=== PATIENT | male | born 1960 | race African-American/Black ===

== ENCOUNTER 2018-07-31 18:16 | Inpatient (IN) | payer SELFPAY ==
[2018-07-31 20:07] VITALS: BMI 26.6
--- NOTE | 2018-07-31 20:24 | HP ---
CIWA Score Nausea/Vomitin (vomiting x 3) Muscle Tremors: 3 Anxiety: 4-Mod. Anxious/Guarded Agitation: 3 Paroxysmal Sweats: 3 Orientation: 0-Oriented Tacttile Disturbances: 0-None Auditory Disturbances: 0-None Visual Disturbances: 0-None Headache: 2-Mild CIWA-Ar Total Score: 18 - Admission Criteria OASAS Guidelines: Admission for Medically Managed Detox: Requires at least one of the followin. CIWA greater than 12 2. Seizures within the past 24 hours 3. Delirium tremens within the past 24 hours 4. Hallucinations within the past 24 hours 5. Acute intervention needed for co occurring medical disorder 6. Acute intervention needed for co occurring psychiatric disorder 7. Severe withdrawal that cannot be handled at a lower level of care (continued vomiting, continued diarrhea, abnormal vital signs) requiring intravenous medication and/or fluids 8. Admission ROS [facility] Chief Complaint: Alcohol withdrawal symptoms Allergies/Adverse Reactions: Allergies Allergy/AdvReac Type Severity Reaction Status Date / Time No Known Allergies Allergy Verified 07/31/18 20:16 History of Present Illness: 57 years old male with a long history of alcohol dependence is seeking admission to detox. Patient was referred from [facility] where he was treated for alcohol intoxication. He reported persistent vomiting, diarrhea and blackout. He has medical history of Asthma, COPD, migraines, seizures, GERD and hypertension. He denies suicide attempt and suicidal ideation at this time. Patient reports that this is his first admission to [facility] and first detoxification. Exam Limitations: No Limitations - Ebola screening Have you traveled outside of the country in the last 21 days: No (N) Have you had contact with anyone from an Ebola affected area: No Have you been sick,other than usual withdrawal symptoms: No Do you have a fever: No - Review of Systems Constitutional: Chills, Malaise, Night Sweats, Changes in sleep EENT: reports: Eye Pain (left), Sinus Pressure Respiratory: reports: No Symptoms reported Cardiac: reports: No Symptoms Reported GI: reports: Diarrhea, Nausea, Poor Appetite, Poor Fluid Intake, Vomiting, Abdominal cramping : reports: No Symptoms Reported Musculoskeletal: reports: Muscle Pain Integumentary: reports: Dryness, Flushing Neuro: reports: Headache, Tremors Endocrine: reports: No Symptoms Reported Hematology: reports: No Symptoms Reported Psychiatric: reports: Mood/Affect Appropiate, Orientated x3, Anxious Other Systems: Reviewed and Negative Patient History - Patient Medical History Hx Anemia: No Hx Asthma: Yes (Albuterol) Hx Chronic Obstructive Pulmonary Disease (COPD): Yes (Ventolin, Symbicort) Hx Cancer: No Hx Cardiac Disorders: No Hx Congestive Heart Failure: No Hx Hypertension: Yes (Not on medication) Hx Hypercholesterolemia: No Hx Pacemaker: No HX Cerebrovascular Accident: No Hx Seizures: Yes (Not on medication. Last seizure was 2018) Hx Dementia: No Hx Diabetes: No Hx Gastrointestinal Disorders: Yes (GERD) Hx Liver Disease: No Hx Genitourinary Disorders: No Hx Sexually Transmitted Disorders: No Hx Renal Disease (ESRD): No Hx Thyroid Disease: No Hx Human Immunodeficiency Virus (HIV): No (Negative June 19, 2018) Hx Hepatitis C: No Hx Depression: No Hx Suicide Attempt: No (Denies suicidal ideation at this time) Hx Bipolar Disorder: No Hx Schizophrenia: No - Patient Surgical History Past Surgical History: Yes Hx Orthopedic Surgery: Yes (Right Wrist repair 2010) - PPD History Previous Implant?: Yes Documented Results: Negative w/o proof Implanted On Prior [facility] Admission?: No PPD to be Administered?: Yes - Reproductive History Patient is a Female of Child Bearing Age (11 -55 yrs old): No (MALE) - Smoking Cessation Smoking history: Current every day smoker Have you smoked in the past 12 months: Yes Aproximately how many cigarettes per day: 10 Hx Chewing Tobacco Use: No Initiated information on smoking cessation: Yes 'Breaking Loose' booklet given: 07/31/18 - Substance & Tx. History Hx Alcohol Use: Yes Hx Substance Use: Yes Substance Use Type: Alcohol, Cocaine Hx Substance Use Treatment: No - Substances Abused Alcohol Route: Oral Frequency: Daily Amount used: HENNESEY - 2 PINTS; TEQUILA - 1/2 PINT Age of first use: 19 Date of Last Use: 07/29/18 Crack Route: Smoking Frequency: 3-6 times per week Amount used: $350 DAILY Age of first use: 19 Date of Last Use: 07/29/18 Family Disease History - Family Disease History Family History: Denies Admission Physical Exam [facility] - Vital Signs Vital Signs: Vital Signs - 24 hr 07/31/18 20:05 Temperature 97.9 F Pulse Rate 77 Respiratory 19 Rate Blood Pressure 141/92 - Physical General Appearance: Yes: Severe Distress, Tremorous, Irritable, Sweating, Anxious HEENTM: Yes: EOMI, Normal ENT Inspection, Normal Voice, CAROLE Respiratory: Yes: Lungs Clear, Normal Breath Sounds, No Respiratory Distress Neck: Yes: Supple Breast: Yes: Breast Exam Deferred Cardiology: Yes: Regular Rhythm, Regular Rate Abdominal: Yes: Normal Bowel Sounds, Soft Genitourinary: Yes: Within Normal Limits Back: Yes: Normal Inspection Musculoskeletal: Yes: Muscle Pain Extremities: Yes: Tremors Neurological: Yes: Alert, Normal Mood/Affect Integumentary: Yes: Warm - Diagnostic (1) Alcohol dependence with uncomplicated withdrawal Current Visit: Yes Status: Chronic (2) Asthma Current Visit: Yes Status: Chronic Qualifiers: Asthma severity: severe Asthma persistence: persistent (3) COPD (chronic obstructive pulmonary disease) Current Visit: Yes Status: Chronic Qualifiers: COPD type: COPD with acute exacerbation Qualified Code(s): J44.1 - Chronic obstructive pulmonary disease with (acute) exacerbation (4) Migraines Current Visit: Yes Status: Chronic Qualifiers: Migraine type: with aura (5) Hypertension Current Visit: Yes Status: Chronic Qualifiers: Hypertension type: essential hypertension Qualified Code(s): I10 - Essential (primary) hypertension (6) Seizures Current Visit: Yes Status: Chronic (7) GERD (gastroesophageal reflux disease) Current Visit: Yes Status: Chronic (8) Nicotine dependence Current Visit: Yes Status: Acute Qualifiers: Nicotine product type: cigarettes Substance use status: uncomplicated Qualified Code(s): F17.210 - Nicotine dependence, cigarettes, uncomplicated (9) Cannabis dependence Current Visit: Yes Status: Acute Cleared for Admission [facility] - Detox or Rehab [facility] Level of Care: Medically Managed Detox Regimen/Protocol: Librium [facility] Breath Alcohol Content Breath Alcohol Content: 0 Urine Drug Screen - Results Drug Screen Negative: No Urine Drug Screen Results: QAMAR-Cocaine, BZO-Benzodiazepines Inpatient Rehab Admission - Rehab Decision to Admit Inpatient rehab admission?: No
[2018-07-31] MEDS ORDERED: ACETAMINOPHEN 325 MG TABLET (FP) PO PRN ×2 (20:41)
[2018-07-31] MEDS ORDERED: MENTHOL/PHENOL 1 EACH UD MM PRN (20:41)
[2018-07-31] MEDS ORDERED: MAGNESIUM HYDROX 2400MG/30ML ORAL SUSPENSION 30 ML CUP PO PRN (20:41)
[2018-07-31] MEDS ORDERED: IBUPROFEN 400 MG TABLET (FP) PO PRN (20:41)
[2018-07-31] MEDS ORDERED: NICOTINE POLACRILEX 2 MG GUM BUC PRN (20:41)
[2018-07-31] MEDS ORDERED: chlordiazePOXIDE HCL 25 MG CAPSULE PO PRN (20:41)
[2018-07-31] MEDS ORDERED: hydrOXYzine PAMOATE 25 MG CAPSULE (FP) PO PRN (20:41)
[2018-07-31] MEDS ORDERED: BISMUTH SUBSALICYLATE 524 MG/30 ML UD PO PRN (20:41)
[2018-07-31] MEDS ORDERED: MAGNESIUM CITRATE 300 ML BOTTLE PO PRN (20:41)
[2018-07-31] MEDS ORDERED: chlordiazePOXIDE HCL 25 MG CAPSULE PO SCH (23:00)
[2018-08-01] MEDS ORDERED: chlordiazePOXIDE HCL 25 MG CAPSULE PO PRN (00:24)
[2018-08-01] MEDS: MELATONIN 5 MG TABLETS PO PRN ×2 (02:39→22:25)
[2018-08-01] MEDS: THIAMINE HCL 100 MG TABLET (FP) PO SCH ×2 (02:43→22:24)
[2018-08-01] MEDS: chlordiazePOXIDE HCL 25 MG CAPSULE PO SCH ×4 (06:52→22:49)
[2018-08-01] MEDS: METHOCARBAMOL 500 MG TABLET PO PRN (09:14)
[2018-08-01] MEDS: NICOTINE 14 MG/24 HOURS TOPICAL PATCH TD SCH (10:43)
[2018-08-01] MEDS: PRENATAL VITAMINS W/ FOLIC ACID TABLET (FP) PO SCH (10:43)
[2018-08-01 12:48] LABS: HEMATOCRIT 41.6 % (35.4-49); HEMOGLOBIN 13.7 GM/dL (11.7-16.9); MCH 29.8 pg (25.7-33.7); MCHC 32.9 g/dl (32.0-35.9); MEAN CELL VOLUME 90.6 fl (80-96); PLATELET COUNT 303 K/MM3 (134-434); RBC 4.59 M/mm3 (4.00-5.60); WHITE BLOOD COUNT 5.8 K/mm3 (4.0-10.0)
[2018-08-01 13:09] LABS: ALBUMIN 3.1 g/dl (3.4-5.0); ALK PHOS 77 U/L (45-117); ANION GAP 9 MMOL/L (8-16); BILIRUBIN,TOTAL 0.6 mg/dL (0.2-1); BLOOD UREA NITROGEN 15 mg/dL (7-18); CALCIUM 8.7 mg/dL (8.5-10.1); CHLORIDE 108 mmol/L (98-107); CO2 25 mmol/L (21-32); CREATININE 0.9 mg/dL (0.55-1.3); GLUCOSE,RANDOM 88 mg/dL (74-106); POTASSIUM 4.2 mmol/L (3.5-5.1); SGOT/AST 14 U/L (15-37); SGPT/ALT 15 U/L (13-61); SODIUM 142 mmol/L (136-145); TOT PROT 5.6 g/dl (6.4-8.2)
--- NOTE | 2018-08-01 14:36 | PN ---
[facility] CIWA - CIWA Score Nausea/Vomitin-Mild Nausea/No Vomiting Muscle Tremors: 1-None Visible, but Junction Anxiety: 1-Mildly Anxious Agitation: 1-Slight > Activity Paroxysmal Sweats: 1-Minimal Palms Moist Orientation: 0-Oriented Tacttile Disturbances: 0-None Auditory Disturbances: 0-None Visual Disturbances: 0-None Headache: 1-Very Mild CIWA-Ar Total Score: 6 [facility] Progress Note (SOAP) Subjective: pt states "so far so good", day #2 of detox protocols O: Vital Signs - 24 hr 07/31/18 08/01/18 08/01/18 20:05 02:38 03:30 Temperature 97.9 F 98.2 F Pulse Rate 77 76 Respiratory 19 18 18 Rate Blood Pressure 141/92 146/79 08/01/18 08/01/18 08/01/18 07:13 09:45 13:04 Temperature 97.7 F 97.9 F 98.2 F Pulse Rate 74 71 88 Respiratory 18 20 20 Rate Blood Pressure 122/70 129/75 151/85 Laboratory Tests 08/01/18 08/01/18 08:00 08:00 WBC 5.8 RBC 4.59 Hgb 13.7 Hct 41.6 MCV 90.6 MCH 29.8 MCHC 32.9 RDW 15.0 Plt Count 303 MPV 8.0 Sodium 142 Potassium 4.2 Chloride 108 H Carbon Dioxide 25 Anion Gap 9 BUN 15 Creatinine 0.9 Creat Clearance w eGFR 87.61 Random Glucose 88 Calcium 8.7 Total Bilirubin 0.6 AST 14 L ALT 15 Alkaline Phosphatase 77 Total Protein 5.6 L Albumin 3.1 L low albumin/protein a/p: continue detox protocols- pt stable
[2018-08-01] MEDS: MAG HYDROX/AL HYDROX/SIMETH 30 ML UNIT-DOSE CUP PO PRN (17:59)
[2018-08-01] MEDS ORDERED: PANTOPRAZOLE 40 MG TABLET (FP) PO ONE (21:08)
--- NOTE | 2018-08-01 21:09 | PN ---
S Progress Note Note: Patient complained of acid reflux Vital Signs Temperature 98.6 F 08/01/18 16:35 Pulse Rate 82 08/01/18 16:35 Respiratory Rate 18 08/01/18 16:35 Blood Pressure 141/85 08/01/18 16:35 O2 Sat by Pulse Oximetry (%) Action: Pantoprazole 40mg tablet oral ordered
[2018-08-01] MEDS ORDERED: chlordiazePOXIDE HCL 25 MG CAPSULE PO SCH (23:00)
[2018-08-02] MEDS: chlordiazePOXIDE HCL 25 MG CAPSULE PO SCH ×4 (05:49→22:15)
[2018-08-02] MEDS: RANITIDINE HCL 150 MG TABLET (FP) PO SCH ×2 (10:42→22:14)
[2018-08-02] MEDS: PRENATAL VITAMINS W/ FOLIC ACID TABLET (FP) PO SCH (10:42)
[2018-08-02] MEDS: NICOTINE 14 MG/24 HOURS TOPICAL PATCH TD SCH (10:42)
--- NOTE | 2018-08-02 11:01 | PN ---
S CIWA - CIWA Score Nausea/Vomitin Muscle Tremors: 2 Anxiety: 2 Agitation: 2 Paroxysmal Sweats: 1-Minimal Palms Moist Orientation: 0-Oriented Tacttile Disturbances: 1-Very Mild Itch/Numbness Auditory Disturbances: 1-Very Mild Visual Disturbances: 0-None Headache: 2-Mild CIWA-Ar Total Score: 13 [facility] Progress Note (SOAP) Subjective: alert,irritable,anxious,interrupted sleep,tremor Objective: 08/02/18 11:00 Vital Signs Temperature 97.7 F 08/02/18 09:24 Pulse Rate 80 08/02/18 09:24 Respiratory Rate 18 08/02/18 09:24 Blood Pressure 142/80 08/02/18 09:24 O2 Sat by Pulse Oximetry (%) 08/02/18 11:00 Laboratory Last Values WBC 5.8 K/mm3 (4.0-10.0) 08/01/18 08:00 RBC 4.59 M/mm3 (4.00-5.60) 08/01/18 08:00 Hgb 13.7 GM/dL (11.7-16.9) 08/01/18 08:00 Hct 41.6 % (35.4-49) 08/01/18 08:00 MCV 90.6 fl (80-96) 08/01/18 08:00 MCH 29.8 pg (25.7-33.7) 08/01/18 08:00 MCHC 32.9 g/dl (32.0-35.9) 08/01/18 08:00 RDW 15.0 % (11.9-15.9) 08/01/18 08:00 Plt Count 303 K/MM3 (134-434) 08/01/18 08:00 MPV 8.0 fl (7.5-11.1) 08/01/18 08:00 Sodium 142 mmol/L (136-145) 08/01/18 08:00 Potassium 4.2 mmol/L (3.5-5.1) 08/01/18 08:00 Chloride 108 mmol/L (98-107) H 08/01/18 08:00 Carbon Dioxide 25 mmol/L (21-32) 08/01/18 08:00 Anion Gap 9 MMOL/L (8-16) 08/01/18 08:00 BUN 15 mg/dL (7-18) 08/01/18 08:00 Creatinine 0.9 mg/dL (0.55-1.3) 08/01/18 08:00 Creat Clearance w eGFR 87.61 (>60) 08/01/18 08:00 Random Glucose 88 mg/dL (74-106) 08/01/18 08:00 Calcium 8.7 mg/dL (8.5-10.1) 08/01/18 08:00 Total Bilirubin 0.6 mg/dL (0.2-1) 08/01/18 08:00 AST 14 U/L (15-37) L 08/01/18 08:00 ALT 15 U/L (13-61) 08/01/18 08:00 Alkaline Phosphatase 77 U/L (45-117) 08/01/18 08:00 Total Protein 5.6 g/dl (6.4-8.2) L 08/01/18 08:00 Albumin 3.1 g/dl (3.4-5.0) L 08/01/18 08:00 RPR Titer Nonreactive (NONREACTIVE) 08/01/18 08:00 Assessment: 08/02/18 11:01 withdrawal symptom Plan: continue detox
--- NOTE | 2018-08-02 11:52 | EKG ---
Test Reason : Blood Pressure : / mmHG Vent. Rate : 080 BPM Atrial Rate : 080 BPM P-R Int : 140 ms QRS Dur : 084 ms QT Int : 372 ms P-R-T Axes : 072 069 034 degrees QTc Int : 429 ms NORMAL SINUS RHYTHM POSSIBLE LEFT ATRIAL ENLARGEMENT BORDERLINE ECG NO PREVIOUS ECGS AVAILABLE Confirmed by LUMA LORENZ, BOY ([id number]) on 08/02/2018 11:51:55 AM Referred By: Confirmed By:BOY GE MD
[2018-08-02] MEDS: MAG HYDROX/AL HYDROX/SIMETH 30 ML UNIT-DOSE CUP PO PRN (20:17)
[2018-08-02] MEDS: THIAMINE HCL 100 MG TABLET (FP) PO SCH (22:14)
[2018-08-02] MEDS ORDERED: chlordiazePOXIDE HCL 10 MG CAPSULE PO PRN (23:00)
[2018-08-02] MEDS ORDERED: chlordiazePOXIDE HCL 10 MG CAPSULE PO SCH (23:00)
[2018-08-03] MEDS ORDERED: chlordiazePOXIDE HCL 10 MG CAPSULE PO PRN (05:00)
[2018-08-03] MEDS: chlordiazePOXIDE HCL 10 MG CAPSULE PO SCH ×4 (05:47→22:28)
--- NOTE | 2018-08-03 10:03 | PN ---
S Progress Note (SOAP) Subjective: alert,irritable,anxious,interrupted sleep Objective: 08/03/18 10:02 Vital Signs Temperature 97.5 F L 08/03/18 06:00 Pulse Rate 73 08/03/18 06:00 Respiratory Rate 18 08/03/18 06:00 Blood Pressure 127/81 08/03/18 06:00 O2 Sat by Pulse Oximetry (%) Assessment: 08/03/18 10:02 withdrawal symptom Plan: continue detox,discharge in am
[2018-08-03] MEDS: PRENATAL VITAMINS W/ FOLIC ACID TABLET (FP) PO SCH (10:38)
[2018-08-03] MEDS: RANITIDINE HCL 150 MG TABLET (FP) PO SCH ×2 (10:38→22:28)
[2018-08-03] MEDS: NICOTINE 14 MG/24 HOURS TOPICAL PATCH TD SCH (10:39)
[2018-08-03] MEDS: FLUOCINONIDE 0.05% TOP OINT (60 GM TUBE) TP SCH ×4 (10:50→23:15)
[2018-08-03] MEDS: THIAMINE HCL 100 MG TABLET (FP) PO SCH (22:28)
[2018-08-03] MEDS: MELATONIN 5 MG TABLETS PO PRN (22:29)
[2018-08-03] MEDS ORDERED: chlordiazePOXIDE HCL 10 MG CAPSULE PO SCH (23:00)
[2018-08-04] MEDS: chlordiazePOXIDE HCL 10 MG CAPSULE PO SCH ×2 (06:30→17:52)
[2018-08-04] MEDS: RANITIDINE HCL 150 MG TABLET (FP) PO SCH ×2 (10:15→22:38)
[2018-08-04] MEDS: PRENATAL VITAMINS W/ FOLIC ACID TABLET (FP) PO SCH (10:15)
[2018-08-04] MEDS: NICOTINE 14 MG/24 HOURS TOPICAL PATCH TD SCH (10:15)
[2018-08-04] MEDS: FLUOCINONIDE 0.05% TOP OINT (60 GM TUBE) TP SCH ×4 (10:15→22:39)
--- NOTE | 2018-08-04 12:31 | PN ---
[facility] Progress Note (SOAP) Subjective: Anxiety, irritability, mild shakes and sweats Objective: 08/04/18 12:29 Vital Signs 08/04/18 08/04/18 08:25 09:39 Temperature 97.9 F 97.3 F L Pulse Rate 78 92 H Respiratory 18 18 Rate Blood Pressure 136/85 132/91 Laboratory Last Values WBC 5.8 K/mm3 (4.0-10.0) 08/01/18 08:00 RBC 4.59 M/mm3 (4.00-5.60) 08/01/18 08:00 Hgb 13.7 GM/dL (11.7-16.9) 08/01/18 08:00 Hct 41.6 % (35.4-49) 08/01/18 08:00 MCV 90.6 fl (80-96) 08/01/18 08:00 MCH 29.8 pg (25.7-33.7) 08/01/18 08:00 MCHC 32.9 g/dl (32.0-35.9) 08/01/18 08:00 RDW 15.0 % (11.9-15.9) 08/01/18 08:00 Plt Count 303 K/MM3 (134-434) 08/01/18 08:00 MPV 8.0 fl (7.5-11.1) 08/01/18 08:00 Sodium 142 mmol/L (136-145) 08/01/18 08:00 Potassium 4.2 mmol/L (3.5-5.1) 08/01/18 08:00 Chloride 108 mmol/L (98-107) H 08/01/18 08:00 Carbon Dioxide 25 mmol/L (21-32) 08/01/18 08:00 Anion Gap 9 MMOL/L (8-16) 08/01/18 08:00 BUN 15 mg/dL (7-18) 08/01/18 08:00 Creatinine 0.9 mg/dL (0.55-1.3) 08/01/18 08:00 Creat Clearance w eGFR 87.61 (>60) 08/01/18 08:00 Random Glucose 88 mg/dL (74-106) 08/01/18 08:00 Calcium 8.7 mg/dL (8.5-10.1) 08/01/18 08:00 Total Bilirubin 0.6 mg/dL (0.2-1) 08/01/18 08:00 AST 14 U/L (15-37) L 08/01/18 08:00 ALT 15 U/L (13-61) 08/01/18 08:00 Alkaline Phosphatase 77 U/L (45-117) 08/01/18 08:00 Total Protein 5.6 g/dl (6.4-8.2) L 08/01/18 08:00 Albumin 3.1 g/dl (3.4-5.0) L 08/01/18 08:00 RPR Titer Nonreactive (NONREACTIVE) 08/01/18 08:00 Labs noted Assessment: 08/04/18 12:29 withdrawal sx Plan: Continue detox Discharge postponed to 08/06 as per counsellor
[2018-08-04] MEDS: THIAMINE HCL 100 MG TABLET (FP) PO SCH (22:38)
[2018-08-04] MEDS: METHOCARBAMOL 500 MG TABLET PO PRN (22:40)
[2018-08-05] MEDS: chlordiazePOXIDE HCL 10 MG CAPSULE PO SCH (06:13)
[2018-08-05] MEDS: FLUOCINONIDE 0.05% TOP OINT (60 GM TUBE) TP SCH ×4 (10:22→22:24)
[2018-08-05] MEDS: PRENATAL VITAMINS W/ FOLIC ACID TABLET (FP) PO SCH (10:22)
[2018-08-05] MEDS: RANITIDINE HCL 150 MG TABLET (FP) PO SCH ×2 (10:22→22:24)
[2018-08-05] MEDS: NICOTINE 14 MG/24 HOURS TOPICAL PATCH TD SCH (10:22)
[2018-08-05] MEDS: THIAMINE HCL 100 MG TABLET (FP) PO SCH (22:24)
[2018-08-06 06:25] VITALS: TEMP 97.9
--- NOTE | 2018-08-06 08:44 | DS ---
[facility] Detox Discharge Summary Admission Date: 07/31/18 Discharge Date: 08/06/18 - History Present History: Alcohol Dependence, Cannabis Dependence - Physical Exam Results Vital Signs: Vital Signs Temperature 97.9 F 08/06/18 06:25 Pulse Rate 81 08/06/18 06:25 Respiratory Rate 18 08/06/18 06:25 Blood Pressure 128/88 08/06/18 06:25 O2 Sat by Pulse Oximetry (%) - Treatment Hospital Course: Detox Protocol Followed, Detoxed Safely, Responded well, Discharged Condition Good, Rehab Referral Accepted - Medication Discharge Medications: Ambulatory Orders NK [No Known Home Medication] 08/03/18 - Diagnosis (1) Cannabis dependence Current Visit: Yes Status: Chronic (2) Nicotine dependence Current Visit: Yes Status: Chronic Qualifiers: Nicotine product type: cigarettes Substance use status: uncomplicated Qualified Code(s): F17.210 - Nicotine dependence, cigarettes, uncomplicated (3) Alcohol dependence with uncomplicated withdrawal Current Visit: Yes Status: Chronic (4) Asthma Current Visit: Yes Status: Chronic Qualifiers: Asthma severity: severe Asthma persistence: persistent (5) COPD (chronic obstructive pulmonary disease) Current Visit: Yes Status: Chronic Qualifiers: COPD type: COPD with acute exacerbation Qualified Code(s): J44.1 - Chronic obstructive pulmonary disease with (acute) exacerbation (6) GERD (gastroesophageal reflux disease) Current Visit: Yes Status: Chronic (7) Hypertension Current Visit: Yes Status: Chronic Qualifiers: Hypertension type: essential hypertension Qualified Code(s): I10 - Essential (primary) hypertension (8) Migraines Current Visit: Yes Status: Chronic Qualifiers: Migraine type: with aura (9) Seizures Current Visit: Yes Status: Chronic - AMA Did Patient Leave Against Medical Advice: No (referred to [facility] inpatient rehab)
[2018-08-06 08:48] VITALS: BP 140/89; PULSE 83
[2018-08-06] MEDS: PRENATAL VITAMINS W/ FOLIC ACID TABLET (FP) PO SCH (10:12)
[2018-08-06] MEDS: RANITIDINE HCL 150 MG TABLET (FP) PO SCH (10:12)
[2018-08-06] MEDS: NICOTINE 14 MG/24 HOURS TOPICAL PATCH TD SCH (10:13)
[2018-08-06] MEDS: FLUOCINONIDE 0.05% TOP OINT (60 GM TUBE) TP SCH (10:13)
== END 2018-08-06 10:51 | disposition home or self-care (01) | DRG 775 ==
LOC: YASAS 18:16 → Y6N 23:37
PROVIDERS: ADMIT Surgery; ATTEND Surgery
PROC: HZ2ZZZZ Detoxification Services for Substance Abuse Treatment (ICD-10-PCS; principal; 2018-07-31)
DX: F10.230 Alcohol dependence with withdrawal, uncomplicated (principal); F12.20 Cannabis dependence, uncomplicated; F17.210 Nicotine dependence, cigarettes, uncomplicated; I10 Essential (primary) hypertension; J45.50 Severe persistent asthma, uncomplicated; J44.1 Chronic obstructive pulmonary disease with (acute) exacerbation; K21.9 Gastro-esophageal reflux disease without esophagitis; G43.909 Migraine, unspecified, not intractable, without status migrainosus; G40.909 Epilepsy, unspecified, not intractable, without status epilepticus; R77.0 Abnormality of albumin; E88.09 Other disorders of plasma-protein metabolism, not elsewhere classified
CPT/HCPCS: 36415; 71046-TC-FY; 80053; 85027; 86593; 93005; 93010